=== PATIENT | male | born 1960 | race Caucasian/White ===

== ENCOUNTER 2017-11-11 12:53 | Emergency (ER) | payer OTHER ==
[~2017-11-11] VITALS: Ht 188 cm; Wt 86.2 kg
[2017-11-11 13:28] LABS: ABSOLUTE BASOPHIL COUNT 0.1 /CUMM (0.0-0.2); ABSOLUTE EOSINOPHIL COUNT 0.1 /CUMM (0.0-0.7); ABSOLUTE LYMPH COUNT 2.9 /CUMM (1.2-3.4); ABSOLUTE MONOCYTE COUNT 0.4 /CUMM (0.10-0.60); BASOPHIL % 0.7 % (0.0-2.0); EOSINOPHIL % 1.3 % (0-5); GRANULOCYTE % 53.1 % (42.2-75.2); HEMATOCRIT 44.5 % (42-52); MEAN CORPUSCULAR HGB 34.5 PG (27.0-31.0); MEAN CORPUSCULAR HGB CONC 34.4 G/DL (33.0-37.0); MEAN CORPUSCULAR VOLUME 100.3 FL (80.0-94.0); MEAN PLATELET VOLUME 7.4 FL (7.4-10.4); PLATELET COUNT 386 /CUMM (130-400); RBC DISTRIBUTION WIDTH 14.1 % (11.5-14.5); RED BLOOD CELL CT 4.43 /CUMM (4.70-6.10); WHITE BLOOD CELL COUNT 7.5 /CUMM (4.8-10.8)
--- NOTE | 2017-11-11 14:31 | ED GENERAL ADULT ---
History of Present Illness General Chief Complaint: ETOH/Drug Related Complaint Stated Complaint: SENT BY HIGHWATCH FOR ALCOHOL DETOX Source: patient Exam Limitations: intoxication Vital Signs & Intake/Output Vital Signs & Intake/Output Vital Signs Date Time Temp Pulse Resp B/P B/P Pulse O2 O2 Flow FiO2 Mean Ox Delivery Rate 11/12 0545 98.9 58 20 134/88 08/ 0545 98.9 58 20 134/88 97 Room Air / 0345 98.0 58 20 140/70 08/ 0345 98.0 58 20 140/70 100 Room Air 11/12 0135 60 18 135/78 100 Room Air / 2345 98.4 62 18 147/93 08/ 2336 98.4 62 98 147/93 97 Room Air 11/11 2208 98.7 69 18 138/91 97 Room Air / 1744 99.3 91 18 142/90 93 / 1530 99.0 98 20 124/76 94 Room Air / 1525 99.0 98 20 124/76 / 1312 98.2 108 17 139/89 98 Room Air Room Air ED Intake and Output 11/12 0000 11/11 1200 Intake Total Output Total Balance Patient 190 lb Weight Allergies Coded Allergies: No Known Allergies (11/11/17) Reconcile Medications No Known Home Medications Triage Note: PT TO TRIAGE FOR ETOH DETOX PRIOR TO HIGHWATCH ADMISSION. PT LAST DRINK THIS MORNING, DENIES SYMPTOMS AT THIS TIME. PT STATES HE BECOMES SHAKY DENIES EVER HAVING DT'S OR SEIZURE Triage Nurses Notes Reviewed? yes HPI: Patient presents for evaluation of alcohol dependence. Patient states he has been drinking alcohol for years but actually had decreased his total alcohol intake until about 3 weeks ago coincident with the of his parents. Patient spent the last month down in [place] attending to this particular matter. He states he began drinking heavily during that time. Over the past 24 hours or so he has consumed a fifth of alcohol. (Aditi KENNEDY,Arthur Kerns) Past History Travel History Traveled to [place] past 21 day No Medical History Any Pertinent Medical History? 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 No (Aditi KENNEDY,Arthur Kerns) Review of Systems Review of Systems Constitutional: Reports: no symptoms. EENTM: Reports: no symptoms. Respiratory: Reports: no symptoms. Cardiovascular: Reports: no symptoms. GI: Reports: no symptoms. Genitourinary: Reports: no symptoms. Musculoskeletal: Reports: no symptoms. Skin: Reports: no symptoms. Neurological/Psychological: Reports: see HPI. Hematologic/Endocrine: Reports: no symptoms. Immunologic/Allergic: Reports: no symptoms. All Other Systems: Reviewed and Negative (Aditi KENNEDY,Arthur Kerns) Physical Exam Physical Exam General Appearance: see below Comments: Gen.: Well-nourished, well-developed, no acute respiratory distress. EtOH-like odor. Head: Normocephalic, atraumatic. Eyes: Normal inspection bilaterally Ears: Normal inspection bilaterally Nose: Normal inspection Throat/mouth : Moist mucosa Neck: Supple, full range of motion, no goiter Heart: Regular rate and rhythm, no murmurs rubs or gallops Lungs: Clear to auscultation bilaterally with normal air entry Chest: Nontender Back: Normal range of motion Abdomen: Soft, nontender, nondistended, normal bowel sounds Extremities: Normal range of motion grossly, equal radial pulses, no cyanosis clubbing or edema Neurologic: Cranial nerves grossly intact, speech is clear Skin: warm and dry Psychiatric: Calm, cooperative, no apparent delusions or hallucinations Core Measures ACS in differential dx? No CVA/TIA Diagnosis: No Sepsis Present: No Sepsis Focused Exam Completed? No (Aditi KENNEDY,Arthur Kerns) Progress Differential Diagnoses I considered the following diagnoses in my evaluation of the patient: Alcohol dependence, alcohol intoxication, alcohol withdrawal Plan of Care: Orders Procedure Date/time Status Regular Diet 11/12 B Active CIWA 11/11 1311 Active URINE DRUGS OF ABUSE 11/11 1311 Complete ETHANOL 11/11 1311 Complete COMPREHENSIVE METABOLIC PANEL 11/11 1311 Complete CBC WITHOUT DIFFERENTIAL 11/11 131 Complete Current Medications Sig/Brandi Start time Last Medication Dose Stop Time Status Admin Gabapentin 300 MG Q8 11/11 2200 UNVr 11/12 (Neurontin) 0600 Clonidine 0.1 MG TID 11/11 2100 UNVr 11/11 (Catapres) 2210 Laboratory Tests 11/11/17 1620: Urine Opiates Screen < 100, Methadone Screen < 40, Barbiturate Screen < 60, Ur Phencyclidine Scrn < 6.00, Amphetamines Screen < 100, U Benzodiazepines Scrn 633 H, Urine Cocaine Screen < 50, Urine Cannabis Screen < 5.00 11/11/17 1320: Anion Gap 16, Estimated GFR > 60, BUN/Creatinine Ratio 11.4, Glucose 178 H, Calcium 9.3, Total Bilirubin 0.6, AST 95 H, ALT 95 H, Alkaline Phosphatase 87, Total Protein 7.4, Albumin 4.4, Globulin 3.0, Albumin/Globulin Ratio 1.5, CBC w Diff NO MAN DIFF REQ, RBC 4.43 L, MCV 100.3 H, MCH 34.5 H, MCHC 34.4, RDW 14.1, MPV 7.4, Gran % 53.1, Lymphocytes % 39.4, Monocytes % 5.5, Eosinophils % 1.3, Basophils % 0.7, Absolute Granulocytes 4.0, Absolute Lymphocytes 2.9, Absolute Monocytes 0.4, Absolute Eosinophils 0.1, Absolute Basophils 0.1, Serum Alcohol 208.0 Initial ED EKG: none Comments: 11/11/2017 8:01:38 PM I have notified Ken that [facility] would be unable to send transportation until the morning. He has discussed this with his . He will remain in the emergency department. (Aditi KENNEDY,Arthur Kerns) Hand-Off Endorsed To: Tariq Krause MD Endorsed Time: 0700 Pending: other (To [facility]) (Phyllis KENNEDY,Chauncey) Comments: His CIWA has remained low, peaking at 4. At this time the patient is stable for discharge to go to [facility] for alcohol rehabilitation. (Tariq Krause MD) Departure Departure Condition: Stable Clinical Impression Primary Impression: Alcohol dependence Qualifiers: Substance use status: uncomplicated Qualified Code: F10.20 - Alcohol dependence, uncomplicated Referrals: Eduardo Barney MD (PCP/Family) Departure Forms: Customer Survey General Discharge Information Prescriptions: Current Visit Scripts No Known Home Medications (Aditi KENNEDY,Arthur Kerns) Departure Disposition: HOME OR SELF CARE Additional Instructions: YOU ARE CLEARED TO GO TO [facility] (Krause MD,[place]erson.) Critical Care Note Critical Care Note Critical Care Time: non-applicable (Aditi KENNEDY,Arthur Kerns)
[2017-11-12 07:48] VITALS: BP 134/81
== END 2017-11-12 07:54 ==
LOC: ERH 12:53
PROVIDERS: Physician Assistant Medical
DX: F10.20 Alcohol dependence, uncomplicated (principal)
CPT/HCPCS: 80307; G0480